=== PATIENT | male | born 1950 | race Caucasian/White ===

== ENCOUNTER 2019-02-26 14:31 | Emergency (ER) | payer MEDICARE, BC, SELFPAY ==
[2019-02-26 14:48] VITALS: BP 170/89; PULSE 73; RESP 16; TEMP 36.5; O2SAT 99
--- NOTE | 2019-02-26 15:08 | ED.GENADUL_ITS ---
Discharge Plan Disposition Patient Disposition: HOME Condition: Stable Discharge Details Chief Complaint: Orthopedic Clinical Impression: Contusion of left leg Primary Care Provider: Yg Bunn ED Provider: Abdirashid Clement Home Meds and New Rx's Prescriptions: New cyclobenzaprine 10 mg tablet 10 mg PO TID PRN (Reason: muscle spasm) Qty: 20 RF: 0 Continued amlodipine 5 mg tablet 5 mg PO DAILY Qty: 90 RF: 4 Pred Mild 5 ML drops,suspension 1 drp OS BID RF: 0 diphenhydramine HCl 25 MG capsule 25 mg PO Q6H PRN (Reason: Itching) Qty: 15 RF: 0 Discharge Instructions Instructions: Cyclobenzaprine (By mouth), Contusion in Adults (ED) Additional Instructions: follow up with your primary care provider in 1-2 weeks if not improving if you have severe worsening pain or the leg becomes significantly swollen return to the emergency department you can take 1000mg tylenol and 600mg ibuprofen every 6 hours for pain as needed Medical Decision Making 68 yo male comes in with 2 days of left leg pain after he was at work and a log fell out of a truck and landed on his left leg, denies loc or hitting head. Has had left leg pain since so came here for an eval today. He has full rom of the left hip, knee and ankle with intact distal sensation and pulses. He localizes the pain to the left mid thigh and knee without significant swelling and has soft muscle. Given full rom doubt fx but will xray to eval for this. Soft muscles with intact distal sensation and normal vascular exam so doubt compartment syndrome at this time xray negative on my read, still has intact sensation and pulses and soft muscles and full rom. No swellnig or calf tenderness so doubt dvt. Will d/c home, advised f/u with pcp and return precautions given Differential Diagnosis contusion, hematoma, fx Imaging Data Radiologic Study: Attestation: I personally reviewed and interpreted this imaging study as follows: Imaging: X-Ray My impression: Radiologist's impression: negative left kne xray per Dr. Padilla Radiologic Study #2: Attestation: I personally reviewed and interpreted this imaging study as follows: Imaging: X-Ray Radiologist's impression: negative left femur xray Radiologic Study #3: Attestation: I personally reviewed and interpreted this imaging study as follows: Imaging: X-Ray Radiologist's impression: negative left ankle xray HPI General Mode of arrival: wheelchair . Date/Time Provider Initiated Documentation: 02/26/19 14:48 . Limitations to Documentation: no limitations . Information obtained by: patient . History of Present Illness 68 year old M presents to the emergency department with the chief complaint of left leg pain, described as moderate and severe, Quality is described as aching, and is localized to the left and lower extremity. Patient started experiencing this day(s) (2) and it has been constant. No relieving factors improve symptom(s), No exacerbating factors reported . Patient notes no other symptoms.. Patient did receive the following treatments prior to arrival, n one Related Data Home Medications Medication Instructions Recorded Confirmed diphenhydramine HCl 25 mg PO Q6H PRN #15 cap 03/02/17 02/26/19 Pred Mild 1 drp OS BID 11/10/17 02/26/19 amlodipine 5 mg tablet 5 mg PO DAILY #90 tab-cap 12/16/18 02/26/19 cyclobenzaprine 10 mg PO TID PRN #20 tab 02/26/19 Previous Rx's Medication Instructions Recorded diphenhydramine HCl 25 mg PO Q6H PRN #15 cap 03/02/17 amlodipine 5 mg tablet 5 mg PO DAILY #90 tab-cap 12/16/18 cyclobenzaprine 10 mg PO TID PRN #20 tab 02/26/19 Allergies Allergy/AdvReac Type Severity Reaction Status Date / Time bee venom protein (honey bee) Allergy Anaphylaxsi Unverified 02/26/19 14:53 s General Stated Complaint: Orthopedic JOSE: 3 Review of Systems Review of Systems All systems reviewed & are unremarkable except as noted in HPI and below Constitutional Denies chills, Denies fever(s) and Denies weakness ENT Denies change in voice Cardiovascular Denies chest pain and Denies dyspnea Respiratory Denies cough and Denies dyspnea Gastrointestinal Denies abdominal pain, Denies nausea and Denies vomiting Integumentary/Breasts Denies rash Neurologic Denies weakness Endocrine Denies heat intolerance PFSH Surgical History hand surgery knee surgery Social History Smoking/Tobacco Use Status: Former Tobacco Use Drug use: Never Do you feel safe at home: Yes Do you feel safe in your relationship?: Yes Exam Const General: no acute distress Orientation: alert HENMT Head: normal to inspection Ears: external ears normal General nose exam: external nose normal Mouth: moist mucous membranes Eyes General: appearance normal, both eyes and all related structures Neck Neck: normal visual inspection Resp Effort & Inspection: normal respiratory effort and able to speak in complete sentences Cardio Rate: regular rate Skin General skin exam: no rashes or lesions noted Neuro General: alert and oriented x3 Extrem General: normal to inspection and full ROM Psych Mental Status: mental status grossly normal Course Vital Signs Temperature 36.5 C 02/26/19 14:48 Pulse 73 02/26/19 14:48 Respiratory Rate 16 02/26/19 14:48 Blood Pressure 170/89 H 02/26/19 14:48 Pulse Oximetry 99 02/26/19 14:48 Temperature 36.5 C 02/26/19 14:48 Temperature Source Temporal Artery Scan 02/26/19 14:48 Pulse 73 02/26/19 14:48 Respiratory Rate 16 02/26/19 14:48 Respiratory Effort Non-Labored 02/26/19 14:52 Blood Pressure 170/89 H 02/26/19 14:48 Blood Pressure Position Supine 02/26/19 14:48 Pulse Oximetry 99 02/26/19 14:48 Oxygen Delivery Method Room Air 02/26/19 14:48 Oxygen Flow Rate 0 02/26/19 14:48 Pain Level 10 02/26/19 14:54
--- NOTE | 2019-02-26 15:12 | DI.RAD_ITS ---
SYMPTOMS/DIAGNOSIS: PAIN S/P TRAUMA OF LOG ROLLING ON LEG 2 DAYS AGO LEFT ANKLE: There is no evidence of a fracture or dislocation. LEFT KNEE: There is no evidence of a fracture or dislocation. LEFT FEMUR: There is no evidence of a fracture or dislocation.
[2019-02-26 16:28] VITALS: BP 161/89; PULSE 74; RESP 14; TEMP 37; O2SAT 98
== END 2019-02-26 16:28 | disposition home or self-care (01) ==
PROVIDERS: Emergency Provider Emergency Medicine; PCP Emergency Medicine
DX: S70.12XA Contusion of left thigh, initial encounter (principal); M79.605 Pain in left leg; M25.562 Pain in left knee; V68.4XXA Person boarding or alighting a heavy transport vehicle injured in noncollision transport accident, initial encounter
CPT/HCPCS: 73552; 73562; 99284; 73610

== ENCOUNTER 2020-07-26 02:19 | Outpatient (CLI) | payer MEDICARE, BC, SELFPAY ==
[2020-07-27 20:22] LABS: COVID-19 RT-PCR Result NEGATIVE (Negative)
== END 2020-07-26 02:39 ==
PROVIDERS: PCP Emergency Medicine; Visit Provider Emergency Medicine
DX: Z11.59 Encounter for screening for other viral diseases (principal); Z01.818 Encounter for other preprocedural examination
CPT/HCPCS: U0003

== ENCOUNTER 2021-08-04 04:11 | Observation (INO) | payer MEDICARE, BC, SELFPAY ==
[2021-08-04] VITALS (36 sets, daily range): BP systolic 145–171; BP diastolic 71–87; PULSE 62–96; RESP 12–18; TEMP 36.7–37.1; O2SAT 93–98
--- NOTE | 2021-08-04 04:00 | RT.EKG_ITS ---
APPROVED REPORT Exam: Resting ECG Reason for Exam: chest pain Patient Location: E HR:70 bpm ECG Measurements Heart Rate 70 AXIS TX 141 P 74 QRSd 94 QRS 65 QT 387 T 75 QTc 417 Conclusion Sinus rhythm...normal P axis, V-rate 60- [address] [place] [address]-T changes There are no significant changes compared to prior EKG performed on 11/10/2017 at 12:40.
--- NOTE | 2021-08-04 04:11 | ED.GENADUL_ITS ---
Discharge Plan Disposition Patient Disposition: [facility] INPATIENT Condition: Fair Discharge Details Clinical Impression: Chest pain, Dyspnea, Left shoulder pain Primary Care Provider: Yg Bunn ED Provider: Rafael Ca Home Meds and New Rx's Prescriptions: No Action amlodipine 5 mg tablet 5 mg PO DAILY Qty: 90 RF: 4 Pred Mild 5 ML drops,suspension 1 drp OS BID RF: 0 diphenhydramine HCl 25 MG capsule 25 mg PO Q6H PRN (Reason: Itching) Qty: 15 RF: 0 Medical Decision Making Patient presenting with conflicting stories from what he has told EMS at what he is telling me. In any event, he has had an episode that could be ACS related, less likely dissection or PE. Received aspirin and nitroglycerin in route. Feeling better here. Initial EKG is unchanged from previous. Exam unremarkable except for some mild diaphoresis at this point. IV in place. Laboratory studies ordered. CTA of chest/abdomen to be obtained. Patient laboratory studies are unremarkable. First troponin negative. CTA of chest and abdomen without dissection and no central PE. He does have some pu lmonary nodules which will need follow-up as outpatient. Patient for the most part feeling better although continues with left lateral neck and shoulder pain with movement of the shoulder. No longer having chest pain, shortness of breath and is not diaphoretic at this point. His HEART and his EDACS score are both not low risk and therefore patient recommended for observation admission. Discussed with hospitalist who accepts patient for observation. Patient and significant other aware and agree. Lab Data Lab results reviewed: Yes I reviewed the patient's lab results. ECG Data Attestation: I personally reviewed and interpreted this ECG (s) as follows: Prior ECG tracings: available for review Interpretation: see EKG HPI General Mode of arrival: EMS . Date/Time Provider Initiated Documentation: 08/04/21 04:11 . Limitations to Documentation: no limitations . Information obtained by: patient, EMS and RN notes reviewed . HPI Narrative: Patient presents to the ED with complaint of left neck and arm pain, arm numbness, shortness of breath. Per EMS on their arrival patient complaining of left upper chest tightness/neck pain/arm pain with some nausea. Patient recei basilio aspirin and nitroglycerin. Blood pressure came down with nitroglycerin. For me, patient reports waking up with shortness of breath and denies chest pain. States he had some numbness in his finger tips bilaterally as well as around his lips and cheek. Admit to the left neck/arm pain. Has not had any of the symptoms previous. He stopped smoking some time ago. He does not have hypertension. Denies diabetes, heart attack, stroke. Has not been ill. Denies fever, cough, vomiting, diarrhea, abdominal pain. Reports feeling improved on arrival here. Related Data Home Medications Medication Instructions Recorded Confirmed diphenhydramine HCl 25 mg PO Q6H PRN #15 cap 03/02/17 08/04/21 Pred Mild 1 drp OS BID 11/10/17 08/04/21 amlodipine 5 mg tablet 5 mg PO DAILY #90 tab-cap 03/14/21 08/04/21 Previous Rx's Medication Instructions Recorded diphenhydramine HCl 25 mg PO Q6H PRN #15 cap 03/02/17 amlodipine 5 mg tablet 5 mg PO DAILY #90 tab-cap 03/14/21 Allergies Allergy/AdvReac Type Severity Reaction Status Date / Time bee venom protein (honey bee) Allergy Anaphylaxsi Unverified 08/04/21 04:18 s General JOSE: 3 Review of Systems Narrative: 08/17 Review of Systems completed and is negative except as stated above in HPI (Systems reviewed: Const, Eyes, ENT, Resp, CV, GI, , MSK, Skin, Neuro) PFSH Medical History COPD (chronic obstructive pulmonary disease) Essential hypertension non compliance with treatment Surgical History hand surgery left/due to injury knee surgery left Social History Smoking/Tobacco Use Status: Former Tobacco Use Smoking risk assessment performed?: Yes Alcohol Intake: current Alcohol Intake frequency: 3 or more drinks per day Alcohol type: beer Drug use: Never Substance use type: does not use Do you feel safe at home: Yes Do you feel safe in your relationship?: Yes Exam Narrative Exam Narrative: Const: WDWN elderly male in NAD. HEENT: NC/AT. Normal facial exam. Neck: Supple. Trachea midline. Lungs: Normal respiratory effort. Lungs are clear. Cor: RRR without murmur/gallop. Good radial pulses. GI: Soft. NT/ND. No guarding or rebound. Neuro: A+O x 3. Normal speech, mentation, gait. Cranial nerves II - XII grossly intact. No gross motor or sensory deficit. Ext: No C/C/E. No calf tenderness. Skin: Warm with some diaphoresis present.
--- NOTE | 2021-08-04 04:15 | DI.CT_ITS ---
Exam(s) CT THORAX ABD/PEL CTA EXAM: CT THORAX ABD/PEL CTA CLINICAL HISTORY: neck/chest pain/HTN. TECHNIQUE: Imaging Protocol: Axial CT angiography was performed with multi-slice acquisition and m ulti-planar and/or 3D reconstructions. CONTRAST MATERIAL: Intravenous: Omnipaque 350 Contrast volume:99 mL Oral: No COMPARISON: CT ABD PELVIS WITH CONTRAST from 07/22/2014 FINDINGS: CHEST: Tracheobronchial tree: Patent where visualized. Pulmonary parenchyma: No consolidation or dominant measurable mass. Moderate centrilobular emphysema. There is a 6 mm pulmonary nodule in the lateral aspect of the right lower lobe. There is a 5 mm no ncalcified pulmonary nodule in the right middle lobe. Pulmonary Arteries: No evidence of filling defect to suggest pulmonary emboli. Visualization of the t he peripheral pulmonary arteries is limited limited secondary to timing of the contrast bolus. Mediastinum and Carlie: No dominant adenopathy or fluid collection. Visualized thyroid: Unremarkable. Pleura: No effusion or pneumothorax. Heart: The heart is not dilated. No coronary artery calcifications are seen. No pericardial effusion. Aorta: Thoracic aorta non-dilated. No evidence of dissection. Mild atherosclerosis. Soft Tissues: Unremarkable. Bones: Within normal limits. ABDOMEN AND PELVIS: Abdomen: Celiac axis/mesenteric arteries: No evidence of occlusion or significant stenosis. Renal Arteries: No evidence of occlusion or significant stenosis. There is a single renal artery per fusing each kidney. Aorta: No evidence of occlusion or significant stenosis. No aneurysm or dissection. Atherosclerosi s. Pelvis: Iliac Arteries: No evidence of occlusion or significant stenosis. Atherosclerosis. Common Femoral Arteries: No evidence of occlusion or significant stenosis. Atherosclerosis. ABDOMEN: Liver: Normal density. No measurable mass. Portal, Superior Mesenteric, and Splenic Veins: Unremarkable. Gallbladder and Biliary Tract: No biliary ductal dilatation. There is a suggestion of mild hyperdens e material layering in the dependent portion of the gallbladder. Pancreas: Normal density, no abnormal calcifications or inflammatory process. Spleen: Normal. Adrenals: No masses seen. Kidneys: Normal size, contour and axis. No radiodense stones or obstructive uropathy. 2.6 x 3 cm simp le cyst in the right kidney. No follow-up is recommended. Bowel: No obstruction or bowel wall thickening. No evidence of appendicitis. Peritoneal Cavity: No ascites, collection or mesenteric inflammatory response. No free air. Lymph Nodes: Within normal limits. Bones: Within normal limits. Soft Tissues: Unremarkable. PELVIS: Bladder: High-density debris is seen in the dependent portion of the urinary bladder which may repres ent small stones. The urinary bladder is otherwise unremarkable. Reproductive Organs: Enlarged prostate gland. Lymph Nodes: Within normal limits. Bones: Within normal limits. IMPRESSION: 1. No evidence of a pulmonary embolism, thoracic aortic dissection or aneurysm. 2. No evidence of abdominal aortic aneurysm or dissection. 3. 2 pulmonary nodules. For low risk patients, recommend CT scan at 3-[address] ches t at 18-24 months. For patients at high risk (history of smoking or other known risk fractures), CT scan of the chest at 3-[address] scan of the chest at 18-24 months is recommended (reference:Bettina Moss, 2017). 4. High density material in the dependent portion of the urinary bladder which may represent calculus /gravel. 5. Question of gallstones without CT evidence to suggest acute cholecystitis. Ultrasound may be obta ined for further evaluation. RADIATION DOSE DELIVERED: 1,005.1mGy.cm Total DLP DATA REPOSITORY: All CT scans at this facility are submitted to the National Radiology Data Registry (NRDR) Dose Index Registry (DIR) with the [employer] (ACR). RADIATION OPTIMIZATION: All CT scans at this facility use at least one of these dose optimization te chniques: automated exposure control; mA and/or kV adjustment per patient size (includes targeted exa ms where dose is matched to clinical indication); or iterative reconstruction.
[2021-08-04 04:31] LABS: Abs Immature Grans 0.01 10^3/uL (0.0-0.06); Absolute Basophil Count 0.08 10^3/uL (0.0-0.2); Absolute Eosinophil Count 0.21 10^3/uL (0.0-0.7); Absolute Monocyte Count 0.62 10^3/uL (0.1-0.8); Absolute Neutrophil Count 5.91 10^3/uL (1.2-6.7); Eosinophils % 2.8; HCT 44.8 % (40.0-50.0); HGB 15.5 g/dL (13.5-17.5); Immature Grans % 0.1; Lymphocytes % 10.5; MCH 31.3 pg (27.0-33.0); MCHC 34.6 % (32.0-36.0); MCV 90.5 fL (80-95); MPV 8.9 fL (8.0-11.0); Monocytes % 8.1; Neutrophils % 77.5; Nucleated RBC 0 %; Platelet Count 285 10^3/uL (130-400); RBC 4.95 10^6/uL (4.36-5.78); RDW 12.1 % (11.8-14.1); RDW-SD 39.9 fL; WBC 7.63 10^3/uL (4.4-10.8)
[2021-08-04] MEDS: Normal Saline 1,000 ML 125 ML IV (04:36)
[2021-08-04] MEDS: nitroGLYcerin 0.4 MG TAB SL (04:36)
[2021-08-04 04:48] LABS: ALT 41 U/L (16-63); AST 25 U/L (15-37); Albumin 3.7 g/dL (3.4-5.0); Alkaline Phosphatase 82 U/L (46-116); Anion Gap 6.5 mmol/L (3-11); BUN 20 mg/dL (7-18); Bilirubin, Total 0.4 mg/dL (0.2-1.0); CO2 29.5 mmol/L (21.0-32.0); CREATININE 1.2 mg/dL (0.70-1.30); Calcium 8.9 mg/dL (8.5-10.1); Chloride 107 mmol/L (98-107); Estimated GFR 59.68 (mL/min/1.73m2); Glucose 108 mg/dL (74-106); Potassium 4.3 mmol/L (3.5-5.1); Sodium 143 mmol/L (136-145); Total Protein 7.1 g/dL (6.4-8.2); Troponin I < 0.05 ng/mL (<0.06)
[2021-08-04] MEDS: Omnipaque 350 MG/ML 100 ML BTL IV (05:58)
[2021-08-04] MEDS: Normal Saline - Diluent 50 ML VIAL IV (05:59)
[2021-08-04] MEDS: Normal Saline Flush 10 ML SYR IVP ×2 (05:59→09:51)
--- NOTE | 2021-08-04 06:12 | DI.VRAD_ITS ---
PROCEDURE INFORMATION: Exam: CTA Chest With Contrast Exam date and time: 08/04/2021 4:22 AM Age: 70 years old Clinical indication: Other: Neck/chest pain/htn TECHNIQUE: Imaging protocol: Computed tomographic angiography of the chest with contrast. 3D rendering (Not supervised by radiologist): MIP and/or 3D reconstructed images were created by the technologist. Radiation optimization: All CT scans at this facility use at least one of these dose optimization techniques: automated exposure control; mA and/or kV adjustment per patient size (includes targeted exams where dose is matched to clinical indication); or iterative reconstruction. Contrast material: OMNIPAQUE 350; Contrast volume: 100 ml; Contrast route: INTRAVENOUS (IV); COMPARISON: CR CHEST 2 VIEWS PA,LAT 11/10/2017 1:04 PM FINDINGS: Pulmonary arteries: Evaluation for emboli in the segmental pulmonary arteries is limited due to timing of the contrast bolus. No central pulmonary arterial filling defects identified. Aorta: No evidence of thoracic aortic aneurysm or aortic dissection. Lungs: Mild centrilobular emphysema. No acute infiltrates. Mild dependent changes at the lung bases. There are 2 small perifissural lymph nodes along the major and minor fissures. Noncalcified right middle lobe pulmonary nodule measuring 5 mm (image 43/series 11). Noncalcified right lower lobe pulmonary nodule measuring 6 mm (image 413/series 11). Noncalcified left lower lobe pulmonary nodule measuring 5 mm (image 461/series 11). Pleural spaces: Unremarkable. No pneumothorax. No pleural effusion. Heart: Unremarkable. No cardiomegaly. No pericardial effusion. Lymph nodes: Unremarkable. No enlarged lymph nodes. Bones/joints: No acute or suspicious osseous abnormalities. Moderate degenerative changes of the lower thoracic spine. Soft tissues: Unremarkable. IMPRESSION: 1. No evidence of thoracic aortic aneurysm or dissection. 2. No evidence of pulmonary embolism. Limited evaluation of segmental pulmonary arteries. 3. A few small bilateral pulmonary nodules, measuring up to 6 mm in size.For patients at low risk (minimal or absent history of smoking and of other known risk factors), recommend CT Chest at 3-6 months, then consider CT Chest at 18-24 months. For patients at high risk (history of smoking or of other known risk factors), recommend CT Chest at 3-6 months, then CT Chest at 18-24 months. (Reference: Tiffanie) REFERENCES: Tiffanie Torres et al. Guidelines for Management of Incidental Pulmonary Nodules Detected on CT Images: From the Fleischner Society 2017. Radiology. 2017;284(1):228-243. PROCEDURE INFORMATION: Exam: CTA Abdomen and Pelvis With Contrast Exam date and time: 08/04/2021 4:22 AM Age: 70 years old Clinical indication: Other: Neck/chest pain/htn TECHNIQUE: Imaging protocol: Computed tomographic angiography of the abdomen and pelvis with contrast material. 3D rendering (Not supervised by radiologist): MIP and/or 3D reconstructed images were created by the technologist. Contrast material: OMNIPAQUE 350; Contrast volume: 100 ml; Contrast route: INTRAVENOUS (IV); COMPARISON: CR CHEST 2 VIEWS PA,LAT 11/10/2017 1:04 PM FINDINGS: Aorta: No aortic aneurysm. No aortic dissection. Mild calcified and noncalcified atherosclerotic plaques. Celiac trunk and mesenteric arteries: No occlusion or significant stenosis. Renal arteries: No occlusion or significant stenosis. Single right renal artery. Two left renal arteries. Right iliac arteries: No occlusion or significant stenosis. Mild calcified and noncalcified atherosclerotic plaques. Left iliac arteries: No occlusion or significant stenosis. Mild calcified and noncalcified atherosclerotic plaques. Liver: No mass. Gallbladder and bile ducts: A small amount of mildly hyperattenuating material is seen in the dependent aspect of the gallbladder. Pancreas: Unremarkable. No mass. No ductal dilation. Spleen: Unremarkable. No splenomegaly. Adrenal glands: Unremarkable. No mass. Kidneys and ureters: Rounded water attenuation simple cyst in the right kidney, which requires no further follow-up, measuring 3.2 cm in the midpole. Stomach and bowel: Unremarkable. No obstruction. No mucosal thickening. Appendix: No evidence of appendicitis. Intraperitoneal space: Unremarkable. No free air. No significant fluid collection. Lymph nodes: Unremarkable. No enlarged lymph nodes. Urinary bladder: Calcified material in the right posterior dependent aspect of the urinary bladder, measuring 1.1 x 0.4 cm. Nonspecific mild asymmetric thickening of the posterior wall of the urinary bladder which measures up to 6 mm in thickness. No perivesical fat stranding noted. Reproductive: 5 cm maximum transverse dimension of enlarged prostate. Bones/joints: No acute fracture. No dislocation. Soft tissues: Fatty weight attenuation lipoma in the medial aspect of the left rectus abdominus muscle, measuring 5.1 x 0.9 cm. IMPRESSION: 1. No abdominal aortic aneurysm or dissection. 2. Gallstones and/or sludge suggested in the gallbladder. No secondary signs of acute cholecystitis. If indicated, this finding can be further assessed with ultrasound. 3. Enlarged prostate. 4. Bladder calculus/gravel. 5. Nonspecific mild asymmetric thickening of the posterior wall of the urinary bladder which measures up to 6 mm in thickness. Correlate with urinalysis. Dictated and Authenticated by: Jeanne Ortiz MD. Ordering:REFUGIO Hall MD
[2021-08-04 06:32] LABS: Source Nasal/Nares
--- NOTE | 2021-08-04 07:15 | RT.EKG_ITS ---
APPROVED REPORT Exam: Resting ECG Reason for Exam: repeat Patient Location: E HR:65 bpm ECG Measurements Heart Rate 65 AXIS DC 146 P 59 QRSd 92 QRS 57 QT 399 T 67 QTc 415 Conclusion Sinus rhythm...normal P axis, V-rate 60- 99. Sinus. No STEMI. No significant change from previous. I have reviewed and interpreted ECG and agree with software generated interpretation.
[2021-08-04 08:01] LABS: Troponin I < 0.05 ng/mL (<0.06)
[2021-08-04] MEDS: Ketorolac 30 MG/ML VIAL IVP (09:51)
[2021-08-04 10:19] LABS: ALT 34 U/L (16-63); AST 22 U/L (15-37); Albumin 3.3 g/dL (3.4-5.0); Alkaline Phosphatase 70 U/L (46-116); Bilirubin, Direct 0.1 mg/dL (0.0-0.2); Bilirubin, Total 0.6 mg/dL (0.2-1.0); Total Protein 6.2 g/dL (6.4-8.2)
[2021-08-04 12:13] LABS: Troponin I < 0.05 ng/mL (<0.06)
[2021-08-04 13:18] LABS: COVID-19 PCR Negative (Negative)
--- NOTE | 2021-08-04 14:33 | DSE_ITS ---
Date of service: 08/04/21 Time of Service: 14:33 Discharge Plan Disposition Patient Disposition: HOME Condition: Fair Discharge Details Reason For Visit: CP, Left Arm Pain, SOB Admit Date/Time: 08/04/21 06:22 Admit Provider: Baldo Robetrs Attending Provider: Baldo Roberts Primary Care Provider: Yg Bunn Hospital Course Hospital Course: This is a 70 yo male with a PMH of COPD, HTN. He presented via EMS with c/o l eft upper chest/neck pain. He is a poor historian. He is unable to give a clear time frame on when the discomfort began. He did note some tingling in the fingers of the left hand upon waking on the morning of admission. Also some numbness in the area below the lower lip. 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 No palpitations. He told the ED physician he also woke up with some nausea and shortness of breath. His labs were unremarkable. Troponin negative x 3. CTA of chest and abd w/o dissection or pulmonary emboli. There were pulmonary nodules present that will need outpt follow up. In the ED, he was only experiencing some left sided neck and anterior shoulder discomfort. A third troponin was negative after admission. A dose of Toradol IV relieved the shoulder and neck pain. A MPI stress test was unable to be performed on the day of admission. This can be deferred as an outpt. The left lateral neck and anterior shoulder pain were reproducible with palpation and movement of the LUE. PCP f/u in 1-2 weeks. Home Meds and New Rx's Prescriptions: New Acetaminophen [Tylenol] 650 mg PO Q4H PRN PRNQty: 0 RF: 0 Continued amlodipine 5 mg tablet 5 mg PO DAILY Qty: 90 RF: 4 Pred Mild 5 ML drops,suspension 1 drp OS BID RF: 0 diphenhydramine HCl 25 MG capsule 25 mg PO Q6H PRN (Reason: Itching) Qty: 15 RF: 0 Discharge Instructions Stand Alone Forms: Nursing Discharge Form Activity:: Activity as Tolerated Equipment/Supplies:: No Equipment Needed Diet:: Resume usual diet. Discharge Orders Discharge Orders: Discharge Order (Routine); Ordered 08/04/21 Ordered By: Baldo Roberts DS: Summary Time Spent with Patient providing and/or coordinating discharge services: Less than 30 minutes Status at Discharge Functional status at discharge: independent ambulation Overall status at discharge: patient is progressing back to baseline Mental Status: mental status grossly normal Speech and Movement: speech and movement normal Mood: congruent mood Affect: normal affect Exam Const General: cooperative and no acute distress Nutritional Appearance: average body habitus Orientation: alert and oriented x3 HENMT Head: normocephalic and atraumatic Neck Neck: full ROM and no JVD Chest Chest: normal inspection of the chest Resp Effort & Inspection: normal respiratory effort Auscultation: clear to auscultation bilaterally Cardio Palpation: normal PMI Rate: regular rate Rhythm: regular rhythm Heart Sounds: S1 normal and S2 normal GI Palpation: soft and nontender Auscultation: normal bowel sounds Neuro General: moves all extremities Cognition: normal cognition Speech: speech normal Extrem General: no pedal edema and no calf tenderness Shoulder/upper arm images: 1. Tender to palpation. No erythema, rash, swelling. Psych Mental Status: mental status grossly normal Speech and Movement: speech and movement normal Mood: congruent mood Affect: normal affect DS: Data Vitals/I&O Vitals and I&O: Vital Signs Temperature 37.1 C 08/04/21 09:03 Temperature Source Temporal Artery Scan 08/04/21 04:11 Pulse 65 08/04/21 10:00 Pulse Rhythm Regular 08/04/21 09:03 Pulse 67 08/04/21 07:40 Respiratory Rate 18 08/04/21 09:03 Respiratory Effort 08/04/21 09:03 Respiratory Depth Normal 08/04/21 09:03 Respiratory Pattern Normal 08/04/21 09:03 Blood Pressure 161/77 H 08/04/21 09:03 Blood Pressure Mean 108 08/04/21 07:31 Blood Pressure Position Supine 08/04/21 04:11 Pulse Oximetry 98 08/04/21 09:03 Oxygen Delivery Method Room Air 08/04/21 09:03 Oxygen Flow Rate 0 08/04/21 09:03 Pain Level 6 08/04/21 10:10 Intake & Output 08/03/21 08/04/21 08/04/21 23:59 11:59 23:59 Output Total 150 / 150 Balance -150 / -150 Weight 85.275 kg Output: Urine 150 / 150 Other: Urine Odor None Voiding Methods Toilet Data Completed and Pending Labs on day of discharge: Labs from last 24 hours 08/04/21 08/04/21 08/04/21 11:47 07:28 06:24 WBC RBC Hgb Hct MCV MCH MCHC RDW Plt Count MPV Immature Gran % Neutrophils % Lymphocytes % Monocytes % Eosinophils % Basophils % Nucleated RBC % Absolute Neutrophils Absolute Lymphocytes Absolute Monocytes Absolute Eosinophils Absolute Basophils Sodium Potassium Chloride Carbon Dioxide Anion Gap BUN Creatinine Estimated GFR/1.73 m2 Glucose Calcium Magnesium Total Bilirubin 0.6 Conjugated Bilirubin 0.1 AST 22 ALT 34 Alkaline Phosphatase 70 Troponin I < 0.05 < 0.05 Total Protein 6.2 L Albumin 3.3 L COVID-19 Source Nasal/Nares SARS-CoV-2 (PCR) Negative 08/04/21 08/04/21 04:23 04:23 WBC 7.63 RBC 4.95 Hgb 15.5 Hct 44.8 MCV 90.5 MCH 31.3 MCHC 34.6 RDW 12.1 Plt Count 285 MPV 8.9 Immature Gran % 0.1 Neutrophils % 77.5 Lymphocytes % 10.5 Monocytes % 8.1 Eosinophils % 2.8 Basophils % 1.0 Nucleated RBC % 0 Absolute Neutrophils 5.91 Absolute Lymphocytes 0.80 L Absolute Monocytes 0.62 Absolute Eosinophils 0.21 Absolute Basophils 0.08 Sodium 143 Potassium 4.3 Chloride 107 Carbon Dioxide 29.5 Anion Gap 6.5 BUN 20 H Creatinine 1.2 Estimated GFR/1.73 m2 59.68 Glucose 108 H Calcium 8.9 Magnesium 2.0 Total Bilirubin 0.4 Conjugated Bilirubin AST 25 ALT 41 Alkaline Phosphatase 82 Troponin I < 0.05 Total Protein 7.1 Albumin 3.7 COVID-19 Source SARS-CoV-2 (PCR) [facility] Medical History COPD (chronic obstructive pulmonary disease) Essential hypertension non compliance with treatment Surgical History hand surgery left/due to injury knee surgery left Social History Smoking/Tobacco Use Status: Former Tobacco Use Smoking risk assessment performed?: Yes Alcohol Intake: current Alcohol Intake frequency: 3 or more drinks per day Alcohol type: beer Drug use: Never Substance use type: does not use Do you feel safe at home: Yes Do you feel safe in your relationship?: Yes
--- NOTE | 2021-08-04 14:46 | W.PM.HP.N ---
Date of service: 08/04/21 Time of Service: 09:08 Assessment and Plan Assessment and plan (1) Chest pain: Status: Acute Assessment and plan: Atypical and appears to be likely myofascial. Telemetry monitoring. Trend troponin. Qualifiers: Chest pain type: unspecified Qualified Code(s): R07.9 - Chest pain, unspecified (2) Left shoulder pain: Status: Acute Assessment and plan: Musculoskeletal. Toradol 30mg IV x 1. Acetaminophen prn. (3) COPD (chronic obstructive pulmonary disease): Status: Chronic Assessment and plan: No exacerbation. (4) Essential hypertension: Status: Chronic Assessment and plan: On amlodipine at home. Not well controlled currently; SBP in the 140-160's. Monitor History of Present Illness History of Present Illness Chief Complaint: Chest and shoulder pain. Narrative: This is a 70 yo male with a PMH of COPD, HTN. He presented via EMS with c/o left upper chest/neck pain. He is a poor historian. He is unable to give a clear time frame on when the discomfort began. He did note some tingling in the fingers of the left hand upon waking on the morning of admission. Also some numbness in the area below the lower lip. 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 No palpitations. He told the ED physician he also woke up with some nausea and shortness of breath. His labs were unremarkable. Troponin negative x 3. CTA of chest and abd w/o dissection or pulmonary emboli. There were pulmonary nodules present that will need outpt follow up. In the ED, he was only experiencing some left sided neck and anterior shoulder discomfort. ED physician ordered an MPI NM stress test but this could not be performed due to logistics. Review of Systems All systems reviewed & are unremarkable except as noted in HPI and below PFSH Medical History COPD (chronic obstructive pulmonary disease) Essential hypertension non compliance with treatment Surgical History hand surgery left/due to injury knee surgery left Social History Smoking/Tobacco Use Status: Former Tobacco Use Smoking risk assessment performed?: Yes Alcohol Intake: current Alcohol Intake frequency: 3 or more drinks per day Alcohol type: beer Drug use: Never Substance use type: does not use Do you feel safe at home: Yes Do you feel safe in your relationship?: Yes Meds Allergies and Home Medications Allergies Allergy/AdvReac Type Severity Reaction Status Date / Time bee venom protein (honey bee) Allergy Anaphylaxsi Unverified 08/04/21 04:18 s Home Medications Medication Instructions Recorded Confirmed Type diphenhydramine HCl 25 mg PO Q6H PRN #15 cap 03/02/17 08/04/21 Rx Pred Mild 1 drp OS BID 11/10/17 08/04/21 History amlodipine 5 mg tablet 5 mg PO DAILY #90 tab-cap 03/14/21 08/04/21 Rx Acetaminophen [Tylenol] 650 mg PO Q4H PRN PRN #0 08/04/21 Rx Exam Const General: cooperative and no acute distress Nutritional Appearance: average body habitus Orientation: alert and oriented x3 HENMT Head: normocephalic and atraumatic Neck Neck: full ROM and no JVD Chest Chest: normal inspection of the chest Resp Effort & Inspection: normal respiratory effort Auscultation: clear to auscultation bilaterally Cardio Palpation: normal PMI Rate: regular rate Rhythm: regular rhythm Heart Sounds: S1 normal and S2 normal GI Palpation: soft and nontender Auscultation: normal bowel sounds Neuro General: moves all extremities Cognition: normal cognition Speech: speech normal Extrem General: no pedal edema and no calf tenderness Psych Mental Status: mental status grossly normal Speech and Movement: speech and movement normal Mood: congruent mood Affect: normal affect Results Labs Result diagrams: 08/04/21 04:23 08/04/21 04:23 Labs: Laboratory Results - last 24 hr 08/04/21 08/04/21 08/04/21 04:23 04:23 06:24 WBC 7.63 RBC 4.95 Hgb 15.5 Hct 44.8 MCV 90.5 MCH 31.3 MCHC 34.6 RDW 12.1 Plt Count 285 MPV 8.9 Immature Gran % 0.1 Neutrophils % 77.5 Lymphocytes % 10.5 Monocytes % 8.1 Eosinophils % 2.8 Basophils % 1.0 Nucleated RBC % 0 Absolute Neutrophils 5.91 Absolute Lymphocytes 0.80 L Absolute Monocytes 0.62 Absolute Eosinophils 0.21 Absolute Basophils 0.08 Sodium 143 Potassium 4.3 Chloride 107 Carbon Dioxide 29.5 Anion Gap 6.5 BUN 20 H Creatinine 1.2 Estimated GFR/1.73 m2 59.68 Glucose 108 H Calcium 8.9 Magnesium 2.0 Total Bilirubin 0.4 Conjugated Bilirubin AST 25 ALT 41 Alkaline Phosphatase 82 Troponin I < 0.05 Total Protein 7.1 Albumin 3.7 COVID-19 Source Nasal/Nares SARS-CoV-2 (PCR) Negative 08/04/21 08/04/21 07:28 11:47 WBC RBC Hgb Hct MCV MCH MCHC RDW Plt Count MPV Immature Gran % Neutrophils % Lymphocytes % Monocytes % Eosinophils % Basophils % Nucleated RBC % Absolute Neutrophils Absolute Lymphocytes Absolute Monocytes Absolute Eosinophils Absolute Basophils Sodium Potassium Chloride Carbon Dioxide Anion Gap BUN Creatinine Estimated GFR/1.73 m2 Glucose Calcium Magnesium Total Bilirubin 0.6 Conjugated Bilirubin 0.1 AST 22 ALT 34 Alkaline Phosphatase 70 Troponin I < 0.05 < 0.05 Total Protein 6.2 L Albumin 3.3 L COVID-19 Source SARS-CoV-2 (PCR) Last Vital Signs Temp 37.1 C 08/04/21 09:03 Pulse 65 08/04/21 10:00 Resp 18 08/04/21 09:03 BP 161/77 H 08/04/21 09:03 Pulse Ox 98 08/04/21 09:03 PAWSS Have you Been Recently Intoxicated or Drunk Within the Last 30 days?: Yes Have you Ever Experienced Previous Episodes of Alcohol Withdrawal?: No Have you ever Experienced Withdrawal Seizures?: No Have you ever Experienced Delirium Tremens(DT)s?: No Have you ever undergone Alcohol Rehabilitation Treatment (i.e, inpt ot outpatient treatment programs)?: No Have you ever Experienced Blackouts?: No Have you ever Combined Alcohol with other Downers within the last 90 days?: No Have you ever Combined Alcohol with any other Substance of Abuse during the last 90 days?: No Positive Blood Alcohol level on Presentation? [PCS.BAL]: Unable to Obtain Evidence of Increased Autonomic Activity (i.e. HR>120, tremor, sweating, agitation, nausea)?: No Result: 1
== END 2021-08-04 16:33 | disposition home or self-care (01) ==
LOC: ER 06:42 → MS 07:51
PROVIDERS: Admitting Provider Family Medicine; Emergency Provider Emergency Medicine; PCP Emergency Medicine; Visit Provider Family Medicine
DX: R07.9 Chest pain, unspecified (principal); R06.02 Shortness of breath; M25.512 Pain in left shoulder; I10 Essential (primary) hypertension; J44.9 Chronic obstructive pulmonary disease, unspecified; M54.2 Cervicalgia
CPT/HCPCS: 36415; 74177; 80053; 80076; 87635; 93005; 96360; 96361; 99285; 83735; 84484; 85025; 93010; 99236; G0378; J1885; J3490

== ENCOUNTER 2021-08-05 10:35 | Emergency (ER) | payer MEDICARE, BC, SELFPAY ==
[2021-08-05] VITALS (14 sets, daily range): BP systolic 145–195; BP diastolic 70–96; PULSE 62–78; RESP 12–20; TEMP 36.2–36.6; O2SAT 94–98
--- NOTE | 2021-08-05 11:05 | ED.GENADUL_ITS ---
Discharge Plan Disposition Patient Disposition: HOME Condition: Stable Discharge Details Clinical Impression: Allergic reaction Primary Care Provider: Yg uBnn ED Provider: Teetee Camarillo Home Meds and New Rx's Prescriptions: New prednisone 20 mg tablet 40 mg PO DAILY 5 Days Qty: 10 RF: 0 No Action amlodipine 5 mg tablet 5 mg PO DAILY Qty: 90 RF: 4 Pred Mild 5 ML drops,suspension 1 drp OS BID RF: 0 diphenhydramine HCl 25 MG capsule 25 mg PO Q6H PRN (Reason: Itching) Qty: 15 RF: 0 Acetaminophen [Tylenol] 650 mg PO Q4H PRN PRNQty: 0 RF: 0 Discharge Instructions Instructions: General Allergic Reaction (ED) Additional Instructions: At this time it does appear that you are having allergic reaction to something. It is difficult to determine whether it is from the IV dye or something you ate this morning. Please be careful with Eating peanuts or contrast dye in the future. Please discuss with your primary care provider. Continue to take Benadryl 1 or 2 tablets by mouth every 8 hours as needed for rash and itching. Please take the prednisone as directed. Start the prednisone tomorrow morning. Follow up with primary care provider in 3-5 days. Return to ED sooner if any worsening or concerns. Increase oral fluids. Referrals: Yg Bunn, [Primary Care Provider] - 3 days Discharge Data Discharge Date/Time-TO BE ENTERED AT DEPARTURE: 08/05/21 12:45 Medical Decision Making 70-year-old male presents to the ER with chief complaint of allergic reaction. Patient reports that after breakfast this morning while eating a [place] muffin and peanut butter toast and coffee he began having some itching, rash to his back, abdomen and noticed a lump in his throat. He did have a CT abdomen chest pelvis study yesterday while admitted for TIA CVA rule out with IV dye which she attributes to the allergic reaction. He denies any other known allergies including peanuts. 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 On initial exam he is speaking in full sentences, no stridor auscultated, no wheezing noted on his lung sounds. He does have a urticarial rash which is red and blanchable noted to back and abdomen. Did not take any Benadryl prior to arrival. Has a past medical history of COPD, hypertension, TIA. At this time vital signs are stable O2 sat is 98% on room air. IV ordered with normal saline 150 an hour, 25 mg Benadryl, 125 mg Solu-Medrol, 20 mg of Pepcid IV. 1205: Patient reevaluation hemodynamically stable. States that he feels somewhat better. Rash is still present. O2 sat 94% room air. His speaking in full sentences is able to tolerate p.o. fluids without difficulty. Did discuss taking 1 or 2 Benadryl tablets every 6-8 hours as needed for itching and rash. We will send patient home on p.o. prednisone for 5 days and strict return instructions and follow-up with PCP. 1224: Informed by staff attorney the blood pressure is elevated, I do attribute this to the steroid. Will reevaluate. Blood pressure 145/70 after reassessment by staff attorney. Did relay strict return instructions for any worsening to return to the department. Patient discharged in hemodynamically stable condition. HPI General Mode of arrival: ambulatory . Date/Time Provider Initiated Documentation: 08/05/21 10:50 . Limitations to Documentation: no limitations . Information obtained by: patient, RN notes reviewed and old records reviewed . HPI Narrative: 70-year-old male presents to the ER with chief complaint of allergic reaction. Patient reports that after breakfast this morning while eating a [place] muffin and peanut butter toast and coffee he began having some itching, rash to his back, abdomen and noticed a lump in his throat. He did have a CT abdomen chest pelvis study yesterday while admitted for TIA CVA rule out with IV dye which she attributes to the allergic reaction. He denies any other known allergies including peanuts. 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 On initial exam he is speaking in full sentences, no stridor auscultated, no wheezing noted on his lung sounds. He does have a urticarial rash which is red and blanchable noted to back and abdomen. Did not take any Benadryl prior to arrival. Has a past medical history of COPD, hypertension, TIA. Related Data Home Medications Medication Instructions Recorded Confirmed diphenhydramine HCl 25 mg PO Q6H PRN #15 cap 03/02/17 08/05/21 Pred Mild 1 drp OS BID 11/10/17 08/05/21 amlodipine 5 mg tablet 5 mg PO DAILY #90 tab-cap 03/14/21 08/05/21 Acetaminophen [Tylenol] 650 mg PO Q4H PRN PRN #0 08/04/21 08/05/21 prednisone 40 mg PO DAILY 5 Days #10 tab 08/05/21 Previous Rx's Medication Instructions Recorded diphenhydramine HCl 25 mg PO Q6H PRN #15 cap 03/02/17 amlodipine 5 mg tablet 5 mg PO DAILY #90 tab-cap 03/14/21 Acetaminophen [Tylenol] 650 mg PO Q4H PRN PRN #0 08/04/21 prednisone 40 mg PO DAILY 5 Days #10 tab 08/05/21 Allergies Allergy/AdvReac Type Severity Reaction Status Date / Time Iodinated Contrast Media Allergy Mild , itching, Verified 08/05/21 12:13 redness, urticaria bee venom protein (honey bee) Allergy Anaphylaxsi Unverified 08/05/21 10:58 s General Stated Complaint: Allergic JOSE: 3 Review of Systems All systems reviewed & are unremarkable except as noted in HPI and below PFSH Medical History COPD (chronic obstructive pulmonary disease) Essential hypertension non compliance with treatment Surgical History hand surgery left/due to injury knee surgery left Social History Smoking/Tobacco Use Status: Former Tobacco Use Smoking risk assessment performed?: Yes Alcohol Intake: current Alcohol Intake frequency: 3 or more drinks per day Alcohol type: beer Drug use: Never Substance use type: does not use Do you feel safe at home: Yes Do you feel safe in your relationship?: Yes Exam Narrative Exam Narrative: Constitutional: Alert and oriented x3. Appears stated age. Normal body habitus. Head: Normocephalic, no trauma. Eyes: Left eye pupil is white, left eyelid closed, Red reflex noted, ENT: Bilateral TM's WNL, External ear normal to inspection, no mastoid TTP, swelling, or erythema, Nasal turbinates WNL, no nasal discharge. Normal dentiti on, Posterior pharynx WNL, uvula midline no exudate. No significant swelling noted. Chest: RRR, Normal S1, S2, distal pulses intact. Resp: Lungs clear to auscultation bilaterally, no wheezes, rales, or rhonchi. No stridor Musculoskeletal: Unable to assess 5/5 strength to all four extremities. Skin: Erythemic rash noted to posterior trunk and abdomen. Capillary refill less than 2 sec. Neurologic: Cranial nerves II-XII intact. Alert and oriented x 3. DTR's intact. Hematologic/Lymphatic: No ecchymosis, no lymphadenopathy. Course Vital Signs Vital signs: Vital Signs Temperature 36.2 C L 08/05/21 10:51 Pulse 67 08/05/21 10:51 Respiratory Rate 14 08/05/21 10:51 Blood Pressure 162/74 H 08/05/21 10:51 Pulse Oximetry 98 08/05/21 10:51 Temperature 36.2 C L 08/05/21 10:51 Temperature Source Tympanic 08/05/21 10:51 Pulse 67 08/05/21 10:51 Respiratory Rate 14 08/05/21 10:51 Respiratory Effort Non-Labored 08/05/21 10:58 Respiratory Pattern Normal 08/05/21 10:58 Blood Pressure 162/74 H 08/05/21 10:51 Blood Pressure Position Sitting 08/05/21 10:51 Pulse Oximetry 98 08/05/21 10:51 Oxygen Delivery Method Room Air 08/05/21 10:51 Oxygen Flow Rate 0 08/05/21 10:51 Pain Level 3 08/05/21 10:51 PAWSS Have you Been Recently Intoxicated or Drunk Within the Last 30 days?: Yes Have you Ever Experienced Previous Episodes of Alcohol Withdrawal?: No Have you ever Experienced Withdrawal Seizures?: No Have you ever Experienced Delirium Tremens(DT)s?: No Have you ever undergone Alcohol Rehabilitation Treatment (i.e, inpt ot outpatient treatment programs)?: No Have you ever Experienced Blackouts?: No Have you ever Combined Alcohol with other Downers within the last 90 days?: No Have you ever Combined Alcohol with any other Substance of Abuse during the last 90 days?: No Positive Blood Alcohol level on Presentation? [PCS.BAL]: No Evidence of Increased Autonomic Activity (i.e. HR>120, tremor, sweating, agitation, nausea)?: No Result: 1
[2021-08-05] MEDS: diphenhydrAMINE 50 MG/ML VIAL 25 MG IVP (11:17)
[2021-08-05] MEDS: FAMOTIDINE 20 MG/50 ML BAG 200 MG IVPB (11:18)
[2021-08-05] MEDS: Normal Saline 1,000 ML 150 ML IV (11:18)
[2021-08-05] MEDS: methylPREDNISolone SUCC 125 MG VIAL IVP (11:18)
== END 2021-08-05 12:45 | disposition home or self-care (01) ==
PROVIDERS: Emergency Provider Registered Nurse Emergency; PCP Emergency Medicine
DX: T78.49XA Other allergy, initial encounter (principal); R09.89 Other specified symptoms and signs involving the circulatory and respiratory systems; L50.0 Allergic urticaria; L29.9 Pruritus, unspecified
CPT/HCPCS: 36415; 96361; 96374; 96375; 99284; J1200; J2930

== ENCOUNTER 2021-08-15 00:43 | Outpatient (CLI) | payer MEDICARE, BC, SELFPAY ==
--- NOTE | 2021-08-15 08:00 | ETT_ITS ---
APPROVED REPORT Exam: Exercise Treadmill Patient Location: Out-Patient Room/Bed: Stress Nurse: Rosie Lord RN Ordering Provider:SHANNON HADLEY, Contact Number: [phone] BMI: 28.05 Baseline Rhythm: Sinus Rhythm Medical History Medical History: HTN, COPD Cardiac Medications: Amlodipine Allergies: Iodinated contrast, bee venom Cardiac Risk Factors: HTN, COPD, Smoking (former) Previous Cardiac Procedures: None Pretest Chest Pain Characteristics: No chest pain Exercise History: Sedentary Physical Disabilities: Hips Lung Sounds: Clear to auscultation Heart Sounds: Regular Stress Test Details Test: Exercise stress testing was performed using a Wyatt protocol. Rest Stress HR Resting HR Supine: 62 bpm Max Heart Rate (APMHR): 149 bpm Resting HR Standin bpm Target HR (85% APMHR): 126 bpm Max HR Achieved: 152 bpm % of APMHR: 102 Recovery HR: 94 bpm HR response to stress: Normal HR response to stress BP Resting BP Supine: 170/86 mmHg Resting BP Standin/70 mmHg Max BP: 182/78 mmHg Recovery BP: 158/78 mmHg BP response to stress: Normal blood pressure response to stress. Comment: Hypertensive at baseline. ECG Resting ECG: Sinus Rhythm Ectopy: None Stress ECG: Sinus Tachycardia ST Change: Horizontal ST depression, Downsloping ST depression Lead(s): inferolateral leads Stage: [address] Deviation: 1 mm Arrhythmia: None Recovery ECG: Sinus Rhythm Recovery ST Change: Horizontal ST depression, Downsloping ST depression Lead(s): inferolateral leads Recovery ST Deviation: 1 mm Recovery Arrhythmia: rare PVC, rare PAC Comment: T wave inversions present in leads II, III, aVF, V5, V6 in recovery. T wave inversions retur briana to baseline by minute 14 recovery. Clinical Reason for Termination: Fatigue Stress Symptoms: General Fatigue Exercise duration: 9 min00 sec Highest Stage Reached: Stage 3: 3.4 mph at 14% grade. Exercise capacity: 10.16 METs Morrison Treadmill Score: 8 Rate Pressure Product: [id number] Stress ECG Conclusion 1. Resting electrocardiogram showed voltage for left ventricular hypertrophy 2. Patient exercised on the Wyatt protocol and completed a workload of 10.16 METS, limited by fatigue 3. Resting hypertension. Normal heart rate and blood pressure response to exercise. Patient achieve d greater than 100% of predicted heart rate for age 4. At peak exercise there was J-point depression and upsloping STs, electrocardiographically negative for myocardial ischemia 5. There were no dysrhythmias Morrison Treadmill Score is 8 which is Low risk. Stress Test Summary STAGE Time (mins) Speed (mph) Grade (%) HR BP SYMPTOMS METS Supine 62 170/86 Standing 75 164/70 1 3 1.7 10 121 180/76 4.6 2 6 2.5 12 135 182/78 7 3 9 3.4 14 152 10.2 1 min recovery 140 178/68 3 min recovery 107 178/76 6 min recovery 94 158/78
== END 2021-08-15 01:03 ==
PROVIDERS: PCP Emergency Medicine; Visit Provider Family Medicine
DX: R07.9 Chest pain, unspecified (principal); I10 Essential (primary) hypertension; J44.9 Chronic obstructive pulmonary disease, unspecified; Z87.891 Personal history of nicotine dependence
CPT/HCPCS: 93016; 93018; 93017

== ENCOUNTER 2021-11-09 02:26 | Outpatient (CLI) | payer MEDICARE, BC, SELFPAY ==
--- NOTE | 2021-11-09 06:45 | DI.CT_ITS ---
Exam(s) CT CHEST WO EXAM: CT CHEST WO CLINICAL HISTORY: 3 month follow up-incidental finding on ct,pulmonary nodule, r91.1. TECHNIQUE: Imaging protocol: Axial computed tomography images were obtained and coronal and sagittal reformatted images were created and reviewed. COMPARISON: CT CT THORAX ABD/PEL CTA from 08/04/2021 FINDINGS: The examination is limited due to patient motion artifact. Tracheobronchial tree: Patent where visualized. Pulmonary parenchyma: No focal consolidation. There is a stable 5 mm nodule in the right middle lobe . There is a stable 5 mm nodule in the superior medial aspect of the right lower lobe. There is a s table 4 mm perifissural nodule associated with the right major fissure. The 6 mm nodule in the later al aspect of the right lower lobe is stable. There are no new pulmonary nodules. Despite the patien t motion there do appear to be centrilobular emphysematous changes present. Mediastinum and Carlie: No dominant adenopathy or fluid collection. The esophagus is unremarkable. Thyroid gland: Unremarkable. Pleura: No effusion or pneumothorax. Heart: The heart is not dilated. Mild coronary artery calcification is present. No pericardial effus ion. Aorta: Thoracic aorta non-dilated. Atherosclerosis. Upper abdomen: Hyperdense material is seen layering in the gallbladder which may reflect sludge or g allstones. No biliary ductal dilatation. Stable right renal cyst. Lymph nodes: Within normal limits. Soft tissues: Unremarkable. Bones:Within normal limits for the patient's age. IMPRESSION: 1. Stable pulmonary nodules. Follow-up CT scan in 18-24 months is recommended. 2. Centrilobular pulmonary emphysema. 3. No acute pulmonary process. RADIATION DOSE DELIVERED: 616.52mGy.cm Total DLP 616.52mGy.cm Total DLP DATA REPOSITORY: All CT scans at this facility are submitted to the National Radiology Data Registry (NRDR) Dose Index Registry (DIR) with the [employer] ([employer]). RADIATION OPTIMIZATION: All CT scans at this facility use at least one of these dose optimization te chniques: automated exposure control; mA and/or kV adjustment per patient size (includes targeted exa ms where dose is matched to clinical indication); or iterative reconstruction.
== END 2021-11-09 02:46 ==
PROVIDERS: PCP Emergency Medicine; Visit Provider Family Medicine
DX: R91.1 Solitary pulmonary nodule (principal); J43.2 Centrilobular emphysema
CPT/HCPCS: 71250

== ENCOUNTER 2021-11-09 18:35 | Outpatient (REF) | payer MEDICARE, BC, SELFPAY ==
[2021-11-10 12:30] LABS: COVID-19 RT-PCR UVMMC Result Negative (Negative)
== END 2021-11-09 18:36 | disposition home or self-care (01) ==
LOC: LBN 18:35
PROVIDERS: PCP Emergency Medicine; Visit Provider Emergency Medicine
DX: Z20.822 Contact with and (suspected) exposure to COVID-19 (principal)
CPT/HCPCS: U0003; U0005

== ENCOUNTER 2022-10-02 13:29 | Outpatient (REF) | payer MEDICARE, BC, SELFPAY | END 2022-10-02 13:30 | disposition home or self-care (01) | LOC: LBN 13:29 | PROVIDERS: PCP Family Medicine; Visit Provider Physician Assistant | DX: H60.02 Abscess of left external ear | CPT/HCPCS: 87070; 87205 ==